=== PATIENT | female | born 2000 | race Caucasian/White ===

== ENCOUNTER 2021-03-30 16:16 | Emergency (ER) | payer BC, OTHER ==
--- NOTE | 2021-03-30 17:12 | EDM.PDOC ---
ED HPI GENERAL MEDICAL PROBLEM - General Chief Complaint: Lower Extremity Injury/Pain Stated Complaint: RT ANKLE INJURY Time Seen by Provider: 03/30/21 16:45 Source of Information: Reports: Patient, RN Notes Reviewed History Limitations: Reports: No Limitations - History of Present Illness INITIAL COMMENTS - FREE TEXT/NARRATIVE: Patient is a 20-year-old female who presents to the ER for the evaluation of her right ankle injury, notes that she was at track practice at college, and was doing hurdles, and she ended up landing on her right foot, and she believes that she rolled her right ankle. She does state that she has had a prior injury to this leg, that resulted in a tibial fracture that has since healed. She is denying any numbness or tingling into the toes, but states it was very painful to put any sort of weight on this at all, and that the corporate sales trainer did place a splint as she did not feel that the joint was very stable. She is able to wiggle her toes in all range of motion, there is some swelling to the lateral portion of the right ankle, there is a small skin abrasion over the lateral malleolus as well. She denies any chance of at this time. She did not take anything for pain management prior to coming to the ER. Patient denies any other sick-like symptoms, fever/chills, cough/shortness of breath, nausea/vomiting/diarrhea. Right Leg Pain Score (Numeric/FACES): 9 - Related Data Allergies Allergy/AdvReac Type Severity Reaction Status Date / Time No Known Allergies Allergy Verified 03/30/21 16:38 Home Meds: Home Meds Minocycline [Minocin] 1 tab PO BID 03/30/21 [History] Past Medical History Musculoskeletal History: Reports: Fracture (prior tibial fracture) - Infectious Disease History Infectious Disease History: Reports: None - Past Surgical History Musculoskeletal Surgical History: Reports: Other (See Below) Other Musculoskeletal Surgeries/Procedures:: L knee sugery on ACL, and R tibia surgery Social & Family History - Tobacco Use Tobacco Use Status *Q: Never Tobacco User Second Hand Smoke Exposure: No - Caffeine Use Caffeine Use: Reports: None - Recreational Drug Use Recreational Drug Use: No Review of Systems - Review of Systems Review Of Systems: Comprehensive ROS is negative, except as noted in HPI. ED EXAM, GENERAL - Physical Exam Exam: See Below Exam Limited By: No Limitations General Appearance: Alert, WD/WN, No Apparent Distress Respiratory/Chest: No Respiratory Distress, Lungs Clear, Normal Breath Sounds, No Accessory Muscle Use, Chest Non-Tender Cardiovascular: Normal Peripheral Pulses, Regular Rate, Rhythm, No Murmur Peripheral Pulses: 2+: Dorsalis Pedis (L), Dorsalis Pedis (R) Extremities: Normal Capillary Refill, Limited Range of Motion (of right ankle d/t pain, there is swelling to lateral malleollus as well. Small skin abrasion as well.) Neurological: Alert, Oriented, Normal Cognition, No Motor/Sensory Deficits Psychiatric: Normal Affect, Normal Mood Skin Exam: Warm, Dry, Normal Color, No Rash, Wound/Incision (small skin abrasion or lateral malleolus) Course - Vital Signs Last Recorded V/S: Last Vital Signs Temp 97.3 F 03/30/21 16:36 Pulse 99 03/30/21 16:36 Resp 18 03/30/21 16:36 BP 144/96 H 03/30/21 16:36 Pulse Ox 100 03/30/21 16:36 - Orders/Labs/Meds Orders: Active Orders 24 hr Category Date Time Status Ankle Min 3V Rt [CR] Stat Exams 03/30/21 16:57 Ordered DME for Discharge [COMM] Routine Oth 03/30/21 17:46 Ordered - Re-Assessments/Exams Free Text/Narrative Re-Assessment/Exam: 03/30/21 17:16 Patient presents to the ER for a right ankle injury, we will go ahead and get x- rays of the ankle for evaluation. Patient states she is okay for pain management at this time. 03/30/21 17:45 X-rays have been obtained, and demonstrate no acute fracture or other bony abnormalities, this was over read by myself and Dr. Cali, official radiology read is still pending. We will likely place the patient in an air splint, for immobilization of the joint, to provide stabilization, and prevent further injury. Departure - Departure Time of Disposition: 17:55 Disposition: Home, Self-Care 01 Condition: Good Clinical Impression: Moderate right ankle sprain Qualifiers: Encounter type: initial encounter Qualified Code(s): S93.401A - Sprain of unspecified ligament of right ankle, initial encounter - Discharge Information *PRESCRIPTION DRUG MONITORING PROGRAM REVIEWED*: No *COPY OF PRESCRIPTION DRUG MONITORING REPORT IN PATIENT NORMAN: No Instructions: Ankle Sprain, [id number] Referrals: PCP,None [Primary Care Provider] - Forms: ED Department Discharge Additional Instructions: You have been evaluated in the ED for your right ankle injury. Your x-ray demonstrated no acute fractures or other bony abnormalities of your right ankle. Please use ice as tolerated to the affected area. Please try to elevate the affected area to relieve swelling. You were placed into an air cast type splint, to provide immobilization/stabilization of the joint, and to prevent further injury of the right ankle. You may take Tylenol 500 mg or ibuprofen 600mg q6 hrs for pain relief. Please do so until you have a tolerable level of pain with activity. Do not exceed 4000mg Tylenol or 3200mg ibuprofen in a 24 hour time period. Please return to ED if your symptoms should change or worsen. Sepsis Event Note (ED) - Evaluation Sepsis Screening Result: No Definite Risk - Focused Exam Vital Signs: Vital Signs Temp Pulse Resp BP Pulse Ox 03/30/21 16:36 97.3 F 99 18 144/96 H 100 - My Orders Last 24 Hours: My Active Orders 03/30/21 16:57 Ankle Min 3V Rt [CR] Stat 03/30/21 17:46 DME for Discharge [COMM] Routine - Assessment/Plan Last 24 Hours: My Active Orders 03/30/21 16:57 Ankle Min 3V Rt [CR] Stat 03/30/21 17:46 DME for Discharge [COMM] Routine
--- NOTE | 2021-03-30 18:24 | CR ---
Right ankle: 4 views of the right ankle were obtained. Comparison: Prior right tibia and fibula exam of 03/14/11. Soft tissue swelling is identified. Ankle mortise is symmetric. No acute fracture, dislocation or other bony abnormality is appreciated. Impression: 1. Soft tissue swelling. 2. No acute bony abnormality is appreciated. Diagnostic code #2
== END 2021-03-30 18:27 | disposition home or self-care (01) ==
LOC: JD.ED 16:16
DX: S93.401A Sprain of unspecified ligament of right ankle, initial encounter (principal); X50.9XXA Other and unspecified overexertion or strenuous movements or postures, initial encounter
CPT/HCPCS: 73610-26-RT; 73610-RT; 99282; 99283